=== PATIENT | female | born 1970 | race Caucasian/White ===

== ENCOUNTER 2019-07-29 12:43 | Outpatient (CLI) | payer BC ==
--- NOTE | 2019-08-05 10:01 | MMO ---
Bilateral MAMMO Bilat Screen [facility]. CLINICAL HISTORY: Patient is 48 years old and is seen for screening. The patient has no family history of breast cancer. The patient has no personal history of cancer. VIEWS: The views performed were: bilateral craniocaudal with tomosynthesis and bilateral mediolateral oblique with tomosynthesis. FILMS COMPARED: The present examination has been compared to a prior imaging study performed at This study has been interpreted with the assistance of computer-aided detection. MAMMOGRAM FINDINGS: There are scattered fibroglandular densities. There are no suspicious masses, calcifications or areas of architectural distortion. There are benign appearing calcifications in both breasts. There are no suspicious masses, suspicious calcifications, or new areas of architectural distortion. IMPRESSION: THERE IS NO MAMMOGRAPHIC EVIDENCE OF MALIGNANCY. A ROUTINE FOLLOW-UP MAMMOGRAM IN 1 YEAR IS RECOMMENDED. THE RESULTS OF THIS EXAM WERE SENT TO THE PATIENT. ACR BI-RADS Category 2 - Benign finding MAMMOGRAPHY NOTE: 1. A negative mammogram report should not delay a biopsy if a dominant of clinically suspicious mass is present. 2. Approximately 10% to 15% of breast cancers are not detected by mammography. 3. Adenosis and dense breasts may obscure an underlying neoplasm. Reported by: HORACIO MORLEY MD Electonically Signed: [id number]
== END 2019-07-29 12:44 | disposition home or self-care (01) ==
LOC: BICMAMMO 12:43
PROVIDERS: ATTEND Family Medicine
DX: Z12.31 Encounter for screening mammogram for malignant neoplasm of breast (principal)
CPT/HCPCS: 77063; 77067

== ENCOUNTER 2020-06-24 08:44 | Outpatient (CLI) | payer OTHER ==
--- NOTE | 2020-06-24 09:15 | RAD ---
XR Shoulder Lt 3 View STANDARD HISTORY: Acute pain of left shoulder FINDINGS: No fracture or dislocation is identified. There are degenerative changes in the acromioclavicular collin nt.
== END 2020-06-24 08:45 | disposition home or self-care (01) ==
LOC: BICRAD 08:44
PROVIDERS: ATTEND Nurse Practitioner Family
DX: M25.512 Pain in left shoulder (principal)

== ENCOUNTER 2020-12-21 06:29 | Emergency (ER) | payer BC ==
[2020-12-21] MEDS ORDERED: Boostrix 0.5 ML (Tdap) VIAL ONE (06:56)
[2020-12-21] MEDS ORDERED: Lidocaine 2% PF 5 ML VIAL ONE (06:56)
[2020-12-21] MEDS ORDERED: Bupivacaine 0.5% 10 ML VIAL ONE (06:56)
[2020-12-21] MEDS ORDERED: Bacitracin 1 PK ONE (07:58)
== END 2020-12-21 08:03 | disposition home or self-care (01) ==
LOC: ERS 06:29
DX: S61.215A Laceration without foreign body of left ring finger without damage to nail, initial encounter (principal); Z23 Encounter for immunization; W26.0XXA Contact with knife, initial encounter
CPT/HCPCS: 12002; 90471; 90715; J2001; J3490